=== PATIENT | male | born 1935 | race Asian ===

== ENCOUNTER 2017-12-18 22:05 | Inpatient (IN) | payer MEDICARE, MEDICAID ==
[~2017-12-18] VITALS: Ht 154.9 cm; Wt 52.4 kg
[2017-12-18 22:33] LABS: BASOPHILS % (AUTO) 0.2 % (0-1); EOSINOPHILS % (AUTO) 0.2 % (0-6); HEMATOCRIT 43.8 % (42.0-52.0); HEMOGLOBIN 14.5 g/dl (14.0-17.9); LYMPHOCYTES # (AUTO) 1.5 X10'3 (1.1-4.8); LYMPHOCYTES % (AUTO) 8.1 % (21-51); MEAN CORPUSCULAR HEMOGLOBIN 28.6 PG (27.0-31.0); MEAN CORPUSCULAR HGB CONC 33.1 % (33.0-36.5); MEAN CORPUSCULAR VOLUME 86.5 FL (78-98); MEAN PLATELET VOLUME 9.3 FL (7.4-10.4); MONOCYTES # (AUTO) 0.7 X10'3 (0-0.9); MONOCYTES % (AUTO) 3.5 % (2-12); NEUTROPHILS # (AUTO) 16.6 X10'3 (1.8-7.7); PLATELET COUNT 169 X10'3 (140-440); RED BLOOD COUNT 5.07 X10'6 (4.70-6.10); RED CELL DISTRIBUTION WIDTH 14.7 % (11.5-14.5); WHITE BLOOD COUNT 18.8 X10'3 (4.5-11.0)
[2017-12-18 22:45] LABS: INR 1.1 INR; PARTIAL THROMBOPLASTIN TIME 33 SECONDS (22-32); PROTHROMBIN TIME 11.3 SECONDS (9.0-12.0)
[2017-12-18] MEDS ORDERED: albuterol 2.5 MG/3 ML nebule CONTNEB PRN (22:45)
[2017-12-18 22:49] LABS: ALANINE AMINOTRANSFERASE 29 U/L (12-78); ALBUMIN 3.2 G/DL (3.4-5.0); ALBUMIN/GLOBULIN RATIO 0.7 (1.1-1.5); ALKALINE PHOSPHATASE 71 IU/L (46-116); ANION GAP 11 (8-16); ASPARTATE AMINO TRANSFERASE 24 U/L (10-37); BILIRUBIN,TOTAL 1.7 MG/DL (0.1-1.0); BLOOD UREA NITROGEN 18 MG/DL (7-18); CALCIUM 8.6 MG/DL (8.5-10.1); CHLORIDE 96 MMOL/L (99-107); CREATININE 1.29 MG/DL (0.60-1.10); GLUCOSE 155 MG/DL (70-104); POTASSIUM 4.2 MMOL/L (3.5-5.1); SODIUM 132 MMOL/L (135-145); TOTAL CARBON DIOXIDE 25.3 MMOL/L (24-32); TOTAL PROTEIN 7.7 G/DL (6.4-8.2); eGFR 54 ML/MIN
[2017-12-18 23:08] LABS: ANISOCYTOSIS FEW; PLATELET ESTIMATE NORMAL; TOTAL CELLS COUNTED 100
[2017-12-18] MEDS ORDERED: normal saline 1000ml 1,000 ML IV ONE (23:50)
[2017-12-18] MEDS ORDERED: iohexol 350MG/ML 100ml bottle IV ONE (23:54)
[2017-12-19 00:58] VITALS: BP 122/67
[2017-12-19] MEDS ORDERED: levoFLOXACIN-Levaquin 750MG/D5 150 ML IV STA (01:31)
[2017-12-19] MEDS ORDERED: HYDROcodone/acetaminophen 10/325mg tab PO PRN (02:25)
[2017-12-19] MEDS ORDERED: ondansetron/PF 4mg/2ml inj IV PRN (02:25)
[2017-12-19] MEDS ORDERED: acetaminophen 325mg tablet PO PRN ×2 (02:25)
[2017-12-19] MEDS ORDERED: HYDROcodone/acetaminophen 5mg/325mg tablet PO PRN (02:25)
[2017-12-19] MEDS ORDERED: mag hydrox/Alum hydrox/simeth 30ml oral suspension PO PRN (02:25)
[2017-12-19] MEDS ORDERED: predniSONE 1 mg tablet PO SCH (02:25)
[2017-12-19] MEDS ORDERED: magnesium hydroxide 30ml (MOM) UD suspension PO PRN (02:25)
[2017-12-19] MEDS ORDERED: ipratropium/albuterol 3ml nebule NEB SCH (03:00)
[2017-12-19] MEDS ORDERED: LEVO500T89 PO (03:22)
[2017-12-19] MEDS ORDERED: enoxaparin 30mg/0.3ml syringe SQ SCH (08:00)
[2017-12-19] MEDS ORDERED: temazepam 15mg capsule PO PRN (21:00)
[2017-12-20] MEDS ORDERED: levoFLOXACIN 250mg tablet PO ONE (08:00)
== END 2017-12-19 03:45 | disposition left against medical advice (07) | DRG 193 ==
LOC: ER 22:06 → ED HOLD 12-19 02:23
PROVIDERS: ADMIT Hospitalist; ATTEND Hospitalist
PROC: B32T1ZZ Computerized Tomography (CT Scan) of Left Pulmonary Artery using Low Osmolar Contrast (ICD-10-PCS; principal; 2017-12-18)
PROC: B3201ZZ Computerized Tomography (CT Scan) of Thoracic Aorta using Low Osmolar Contrast (ICD-10-PCS; 2017-12-18)
PROC: B32S1ZZ Computerized Tomography (CT Scan) of Right Pulmonary Artery using Low Osmolar Contrast (ICD-10-PCS; 2017-12-18)
DX: J18.9 Pneumonia, unspecified organism (principal); J96.01 Acute respiratory failure with hypoxia; J44.0 Chronic obstructive pulmonary disease with (acute) lower respiratory infection; E87.1 Hypo-osmolality and hyponatremia; J44.1 Chronic obstructive pulmonary disease with (acute) exacerbation; R09.02 Hypoxemia; Z87.891 Personal history of nicotine dependence
CPT/HCPCS: 36415; 71045; 71275; 80053; 83605; 84484; 85025; 85610; 85730; 87040; 93005; 94640; 94760; 96360; 99285; J1956; J7512; Q9967